=== PATIENT | female | born 1970 | race African-American/Black ===

== ENCOUNTER 2016-10-17 12:06 | Inpatient (IN) | payer MEDICARE, OTHER ==
[2016-10-11 18:01] LABS: BASOPHILS 0.4 %; BASOPHILS ABSOLUTE 0.03 10/3/uL (0.0-0.16); EOSINOPHILS 2.2 %; EOSINOPHILS ABSOLUTE 0.17 10/3/uL (0.0-0.53); HEMATOCRIT 44.2 % (36.0-48.0); HEMOGLOBIN 15.3 g/dL (12.0-16.0); IMMATURE GRANULOCYTES 0.1 %; IMMATURE GRANULOCYTES ABSOLUTE 0.01 10/3/uL (0.0-0.11); LYMPHOCYTES 47.9 %; LYMPHOCYTES ABSOLUTE 3.77 10/3/uL (0.67-4.30); MEAN CORPUS HGB CONC 34.6 g/dL (32.0-36.0); MEAN CORPUSCULAR HEMOGLOB 30.7 pg (26.0-34.0); MEAN CORPUSCULAR VOLUME 88.6 fL (80-100); MEAN PLATELET VOLUME 9.7 fL (9.2-13.0); MONOCYTES 8.8 %; MONOCYTES ABSOLUTE 0.69 10/3/uL (0.21-1.20); NEUTROPHILS 40.6 %; PLATELET COUNT 335 10/3/uL (150-400); RBC DISTRIBUTION WIDTH 14.7 % (12.0-16.0); RED CELL COUNT 4.99 10/6/uL (4.0-5.6); WHITE BLOOD CELLS 7.9 10/3/uL (4.5-10.5)
[2016-10-11 18:03] LABS: MANUAL DIFF NO %
[2016-10-11 18:18] LABS: PROTIME (NOT ORD) 12.6 SEC (12.0-14.5)
[2016-10-11 18:20] LABS: A/G RATIO 1.2 (0.7-1.9); ALBUMIN 4.6 G/DL (3.5-5.0); ALKALINE PHOSPHATASE 84 U/L (45-117); BUN (BLOOD UREA NITROGEN) 5 MG/DL (6-23); CALCIUM, SERUM 9.6 MG/DL (8.5-10.4); CHLORIDE, SERUM 105 MMOL/L (96-112); CO2 (CARBON DIOXIDE) 22 MMOL/L (24-34); CREATININE 0.85 MG/DL (0.55-1.02); GFR AFRICAN AMERICAN 97 ML/MIN (>=60); GFR NON AFRICAN AMERICAN 83 ML/MIN (>=60); GLOBULIN 3.8 G/DL (2.5-4.1); GLUCOSE, SERUM 82 MG/DL (60-99); SGPT(ALT) 17 U/L (5-65); SODIUM, SERUM 140 MMOL/L (135-148); TOTAL BILIRUBIN 0.6 MG/DL (0-1.2); TOTAL PROTEIN 8.4 G/DL (6.0-8.5)
[2016-10-11 18:22] LABS: POTASSIUM, SERUM 4.6 MMOL/L (3.5-5.3); SGOT(AST) 15 U/L (5-40)
[2016-10-11 19:10] LABS: ASCORBIC ACID (UR NOT ORDER) NEG (NEG); BILIRUBIN, URINE NEGATIVE (NEG); KETONE, URINE NEGATIVE (NEG); LEUKOCYTE ESTERASE(NOT OR NEG (NEG); WBC (NOT ORDERED) (RFLEX) 2 (0-5)
--- NOTE | ~2016-10-17 | OP ---
Record Of Operation [facility] [address] [place]. 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 PROCEDURE: Right total knee revision arthroplasty. SURGEON: Josef Patton M.D. BALL MACHINE OPERATOR: See chart. DESCRIPTION OF PROCEDURE: The patient was taken to the operating room and placed supine on the table in normal fashion without incident. General anesthetic was induced per the anesthesiologist. After a spinal was placed, the right lower extremity was exsanguinated. Tourniquet inflated to 350. Sharp dissection was made through the old incision with electrocautery through the fat. Sharp quad splitting approach was carried out. Medial arthrotomy was made. Benign-appearing fluid was sent for cultures and Gram stain. The patella was subluxed. Posterior half of the fat pad excised. Knee brought up into flexion and abundant arthrofibrotic tissue was meticulously and sequentially released. The femoral component was easily removed with flexible osteotome. There was abundant contracture and adhesions between the patellar tendon and into the ACL and PCL around the notch. Tibial component was likewise easily removed. Cement was meticulously debrided. Sequential reamers were used up to a 16. Intramedullary guides used to cut the proximal tibia and distal femur. Ruler was used to verify flexion and extension balance. I chose 4 mm distal augments. The remaining cuts were made in the distal femur of the intramedullary guide. With trial components in place, there was excellent medial and lateral balance and excellent flexion and extension balance. The patella was cut with an oscillating saw, re-drilled with the patellar drill guide with a trial patella in place. There was excellent patellar tracking. All surfaces were copiously irrigated with pulsatile lavage, the components assembled at the back table. Vacuum-mixed cement premixed with antibiotic was pressurized in a doughy phase in the tibia. Tibial component placed, impacted, and excess cement removed. Cement was pressurized in the femur and placed on the posterior runners of the femoral component which was placed, impacted, and excess cement removed. Knee brought out in a trial spacer, brought out into extension over trial spacer. Cement was pressurized in the patella. Patellar component was placed, held with a clamp, and excess cement removed. Once all cement was hardened, knee was taken through range of motion. Further extruded cement was removed with small osteotome. The actual insert was then placed, impacted, and checked to be sure it was sound and snug, and knee closed in a layered fashion over medium ConstaVac drain superolaterally. The wound was dressed sterilely. The patient was awaken and taken to the postanesthesia care unit without incident. COMPLICATIONS: None. Record Of Operation [address] [address] NAME: JIA JENNINGS : 74 STATUS : ADM IN PAT#: [id number] AGE: 46 ADM/REG DATE : 10/17/16 MR#: [id number] REPORT SERV DATE: 10/18/16 DICTATED BY: EITAN PATTON DATE: 10/17/16 REPORT STATUS : Draft TRANSCRIBED BY: DIMPLE DATE: 10/17/16 SPECIMENS: Removed components and cultures. ESTIMATED BLOOD LOSS: Trace. WILLY/DIMPLE Josef Patton M.D. / [id number] CC: Josef Patton M.D.
[~2016-10-17 12:06] MED LIST: HUMIRA PEN SC; PLAQ200B PO; PROTONIX PO; X5 PO; ZANTAC150 MG PO; ZYPREXA15 MG PO
[2016-10-18 05:36] LABS: HEMATOCRIT 33.2 % (36.0-48.0); HEMOGLOBIN 11.8 g/dL (12.0-16.0)
[2016-10-18 05:37] LABS: INTERNATIONAL NORMAL RATI 1.2 UNITS (-)
[2016-10-18 05:38] LABS: PROTIME (NOT ORD) 14.6 SEC (12.0-14.5)
[2016-10-18 05:39] LABS: CHLORIDE, SERUM 108 MMOL/L (96-112); CO2 (CARBON DIOXIDE) 21 MMOL/L (24-34); CREATININE 0.79 MG/DL (0.55-1.02); GFR AFRICAN AMERICAN 106 ML/MIN (>=60); GFR NON AFRICAN AMERICAN 91 ML/MIN (>=60); SODIUM, SERUM 139 MMOL/L (135-148)
[2016-10-18 05:40] LABS: BUN (BLOOD UREA NITROGEN) 9 MG/DL (6-23); CALCIUM, SERUM 7.7 MG/DL (8.5-10.4); GLUCOSE, SERUM 115 MG/DL (60-99)
[2016-10-18] MEDS ORDERED: C5 (12:01)
[2016-10-18] MEDS ORDERED: PCET PO (12:02)
[2016-10-18] MEDS ORDERED: ZOFRAN4 PO (12:02)
== END 2016-10-18 16:51 | disposition home or self-care (01) | DRG 468 ==
LOC: SDC/OF 12:06 → PACU 17:35 → 3JRC 18:41
PROVIDERS: Specialist
PROC: 3E0T3CZ (ICD-10-PCS; 2016-10-17)
PROC: 0SWC0JZ Revision of Synthetic Substitute in Right Knee Joint, Open Approach (ICD-10-PCS; principal; 2016-10-17 14:30)
DX: T84.092A Other mechanical complication of internal right knee prosthesis, initial encounter (principal); M06.9 Rheumatoid arthritis, unspecified; F31.9 Bipolar disorder, unspecified; K21.9 Gastro-esophageal reflux disease without esophagitis; F41.9 Anxiety disorder, unspecified; Z79.899 Other long term (current) drug therapy
CPT/HCPCS: 36415; 71020-PO; 80048; 80053; 81001; 85014; 85018; 85025; 85610; 86850; 86900; 86901; 87015; 87070; 87075; 87102; 87116; 87205; 87641; 88300; 88304; 88311; 93005; 97150-GP; 97161-GP; 97165-GO; A9270-GY; C1776; G8978-CJ-GP; G8979-CH-GP; J0690; J1170; J1885; J2250; J2274; J2405; J2550; J2795; J3010